=== PATIENT | female | born 1965 | race Caucasian/White ===

== ENCOUNTER → 2023-04-28 | Outpatient (CLI) | payer BC ==
[~2023-04-28] MED LIST: ESCI5TAB
--- NOTE | 2023-04-28 15:15 | Diagnostic Imaging Report ---
PROCEDURE: Pelvic comp/transvaginal sonogram. TECHNIQUE: Complete transabdominal and transvaginal pelvic ultrasound was performed. In addition, limited pelvic Doppler was performed. INDICATION: Intramural leiomyoma of the uterus, complaining of right lower quadrant pain. COMPARISON: No prior pelvic ultrasound studies are available for comparison. FINDINGS: Uterus is anteverted measuring 6.5 x 3.1 cm. There appears to be a fibroid approximately 3 cm in size. This is located in the anterior uterus. This does obscure the endometrium. Right ovary measures 4.5 x 1.6 x 1.5 cm and the left ovary measures 2.4 x 1.0 x 2.1 cm. Right ovary does contain approximately 16 mm cyst. Left ovary contains 11 mm cyst. Both ovaries demonstrate blood flow. No adnexal mass or free fluid is detected. IMPRESSION: 1. Uterine fibroid, obscuring the endometrium. 2. Small bilateral ovarian cysts. Dictated by: Dictated on workstation # [id number]
== END ==
LOC: RAD 08:41
PROVIDERS: ATTEND Obstetrics & Gynecology
DX: D25.1 Intramural leiomyoma of uterus (principal); N83.202 Unspecified ovarian cyst, left side; N83.201 Unspecified ovarian cyst, right side
CPT/HCPCS: 76830; 76856

== ENCOUNTER → 2023-05-31 | Outpatient (CLI) | payer BC ==
[~2023-05-31] VITALS: Ht 170.9 cm; Wt 87.9 kg
[~2023-05-31] MED LIST changes: +LOSA50TA63 PO
== END | disposition home or self-care (01) ==
LOC: PREOP 05:30
PROVIDERS: ATTEND Obstetrics & Gynecology
DX: Z01.818 Encounter for other preprocedural examination (principal)